=== PATIENT | male | born 1985 | race Caucasian/White ===

== ENCOUNTER 2017-04-13 02:53 | Emergency (ER) | payer SELFPAY ==
[~2017-04-13] VITALS: Ht 177.8 cm; Wt 78.5 kg
[2017-04-13 03:50] VITALS: BP 146/100
== END 2017-04-13 03:50 | disposition home or self-care (01) ==
LOC: ED 02:53
DX: N48.89 Other specified disorders of penis (principal); A54.9 Gonococcal infection, unspecified; A74.9 Chlamydial infection, unspecified; Z21 Asymptomatic human immunodeficiency virus [HIV] infection status
CPT/HCPCS: J2270; Q0162